=== PATIENT | male | born 1985 | race Two or more races ===

== ENCOUNTER 2019-10-16 04:12 | Emergency (ER) | payer SELFPAY ==
[~2019-10-16] VITALS: Ht 180.3 cm; Wt 127.0 kg
[2019-10-16] MEDS ORDERED: IV NORMAL SALINE 1000ML BAG 1,000 ML IV ONE (05:00)
[2019-10-16] MEDS ORDERED: KETOROLAC 30 MG/ML VIAL. IVP ONE (05:00)
[2019-10-16 05:12] LABS: BASO # 0.1 x10^3/uL (0.0-0.2); BASO % 0 % (0-3); EOS # 0.1 x10^3/uL (0.0-0.7); EOS % 0 % (0-3); LYMPH # 1.2 x10^3/uL (1.0-4.8); LYMPH % 8 % (24-48); MEAN CORPUSCULAR HEMOGLOBIN 30 pg (25-35); MEAN CORPUSCULAR HGB CONC 35 g/dL (31-37); MEAN CORPUSCULAR VOLUME 86 fL (79-100); MONO % 6 % (0-9); NEUT # 13.2 x10^3/uL (1.8-7.7); NEUT % 85 % (31-73); PLATELET COUNT 170 x10^3/uL (140-400); RED CELL DISTRIBUTION WIDTH 13.4 % (11.5-14.5); WHITE BLOOD COUNT 15.5 x10^3/uL (4.0-11.0)
[2019-10-16 05:23] LABS: CALCIUM 8.6 mg/dL (8.5-10.1); POTASSIUM 3.9 mmol/L (3.5-5.1)
[2019-10-16 05:33] LABS: ALBUMIN 4.1 g/dL (3.4-5.0); TOTAL BILIRUBIN 0.5 mg/dL (0.2-1.0); TOTAL PROTEIN 8.1 g/dL (6.4-8.2)
--- NOTE | 2019-10-16 05:37 | PHYS DOC ---
Past Medical History Past Medical History: Migraines, Other Additional Past Medical Histor: KIDNEY STONES Past Surgical History: No Surgical History Smoking Status: Former Smoker Alcohol Use: None General Adult EDM: Chief Complaint: FLANK PAIN HPI: HPI: Patient is a 34 year old male who presents to the ED with a chief complaint of bilateral flank pain greater on the left than the right. Patient does state that he has a history of kidney stones. Patient also states that he has increased urinary frequency and dysuria. Patient also states that his urine was cloudy today. Patient also states that he was out on the [place] today with his children and he was playing with them and he may have injured his back. He is not sure whether this is a kidney stone or a back injury. Review of Systems: Review of Systems: Constitutional: Denies fever or chills. [] Eyes: Denies change in visual acuity. [] HENT: Denies nasal congestion or sore throat. [] Respiratory: Denies cough or shortness of breath. [] Cardiovascular: Denies chest pain or edema. [] GI: Complains of bilateral flank pain [] : Complains of dysuria, urinary frequency [] Neurologic: Denies headache, focal weakness or sensory changes. [] Heart Score: Risk Factors: Risk Factors: DM, Current or recent (<one month) smoker, HTN, HLP, family history of CAD, obesity. Risk Scores: Score 0 - 3: 2.5% MACE over next 6 weeks - Discharge Home Score 4 - 6: 20.3% MACE over next 6 weeks - Admit for Clinical Observation Score 7 - 10: 72.7% MACE over next 6 weeks - Early Invasive Strategies Current Medications: Current Medications Medications (Trade) Dose Ordered Sig/Norma Start Time Stop Time Status Last Admin Dose Admin Ketorolac Tromethamine (Toradol 30mg Vial) 30 mg 1X ONCE 10/16/19 05:00 10/16/19 05:01 DC 10/16/19 05:05 30 MG Sodium Chloride 1,000 ml @ 1,000 mls/hr 1X ONCE 10/16/19 05:00 10/16/19 05:59 Allergies: Allergies: Allergies Coded Allergies Type Severity Reaction Last Updated Verified No Known Drug Allergies 10/16/19 No Physical Exam: PE: Constitutional: Well developed, well nourished, no acute distress, non-toxic appearance. [] HENT: Normocephalic, atraumatic Eyes: EOMI Neck: Normal range of motion, Supple Cardiovascular:Heart rate regular rhythm Lungs & Thorax: Bilateral breath sounds clear to auscultation [] Abdomen: Left abdominal tenderness Extremities: Left paralumbar spinal tenderness radiating down the left thigh Neurologic: Alert and oriented X 3 Current Patient Data: Labs: Laboratory Tests Test 10/16/19 04:58 White Blood Count 15.5 x10^3/uL (4.0-11.0) H Red Blood Count 5.00 x10^6/uL (4.30-5.70) Hemoglobin 15.0 g/dL (13.0-17.5) Hematocrit 43.0 % (39.0-53.0) Mean Corpuscular Volume 86 fL (79-100) Mean Corpuscular Hemoglobin 30 pg (25-35) Mean Corpuscular Hemoglobin Concent 35 g/dL (31-37) Red Cell Distribution Width 13.4 % (11.5-14.5) Platelet Count 170 x10^3/uL (140-400) Neutrophils (%) (Auto) 85 % (31-73) H Lymphocytes (%) (Auto) 8 % (24-48) L Monocytes (%) (Auto) 6 % (0-9) Eosinophils (%) (Auto) 0 % (0-3) Basophils (%) (Auto) 0 % (0-3) Neutrophils # (Auto) 13.2 x10^3/uL (1.8-7.7) H Lymphocytes # (Auto) 1.2 x10^3/uL (1.0-4.8) Monocytes # (Auto) 1.0 x10^3/uL (0.0-1.1) Eosinophils # (Auto) 0.1 x10^3/uL (0.0-0.7) Basophils # (Auto) 0.1 x10^3/uL (0.0-0.2) Platelet Estimate Pending Sodium Level 137 mmol/L (136-145) Potassium Level 3.9 mmol/L (3.5-5.1) Chloride Level 100 mmol/L (98-107) Carbon Dioxide Level 26 mmol/L (21-32) Anion Gap 11 (6-14) Blood Urea Nitrogen 14 mg/dL (8-26) Creatinine 1.0 mg/dL (0.7-1.3) Estimated GFR (Cockcroft-Gault) 85.0 BUN/Creatinine Ratio 14 (6-20) Glucose Level 121 mg/dL (70-99) H Calcium Level 8.6 mg/dL (8.5-10.1) Total Bilirubin 0.5 mg/dL (0.2-1.0) Aspartate Amino Transferase (AST) 41 U/L (15-37) H Alanine Aminotransferase (ALT) 95 U/L (16-63) H Alkaline Phosphatase 48 U/L (46-116) Total Protein 8.1 g/dL (6.4-8.2) Albumin 4.1 g/dL (3.4-5.0) Albumin/Globulin Ratio 1.0 (1.0-1.7) Laboratory Tests 10/16/19 04:58 Laboratory Tests 10/16/19 04:58 Vital Signs: Vital Signs Date Time Temp Pulse Resp B/P (MAP) Pulse Ox O2 Delivery O2 Flow Rate FiO2 10/16/19 04:44 99.6 120 18 141/89 (106) 97 Room Air 99.6 EKG: EKG: [] Radiology/Procedures: Radiology/Procedures: [] Impression: CT ABD/PELVIS IMPRESSION: 1. No opaque urinary calculi. No hydronephrosis. 2. Dilatation of the left mid to distal ureter with tapering just before the ureterovesicular junction. Considerations would include a congenital megaureter or vesicoureteral reflux. An underlying neoplasm would be difficult to exclude. CT urogram is recommended for further characterization. 3. Hepatic steatosis. Course & Med Decision Making: Course & Med Decision Making Pertinent Labs and Imaging studies reviewed. (See chart for details) Patient has leukocytosis of 15.5. UA shows that patient has UTI. Patient was given IV Rocephin in the ER. Patient was given pain medication for his low back pain. Patient states that the pain is worse when he moves. I think the etiology is musculoskeletal. He also states that the pain is radiating down his left thigh. Most likely sciatica. I have also ordered Solu-Medrol 125 mg IV and Norflex [address] does show enlarged ureter on the left side. I given the patient a copy of the CT result so that he can follow-up with his PCP. Patient states that he lives in [place] and is driving back from [place] to [place] today. Discussed results and plan of care with patient. Patient is instructed to follow up with PCP in one to 2 days. Appropriate discharge instructions given to patient to return to the ED or to seek immediate medical evaluation. Patient is instructed to return to the ED if symptoms worsen or if any concerns. Dragon Disclaimer: Dragon Disclaimer: This electronic medical record was generated, in whole or in part, using a voice recognition dictation system. Departure Departure Impression: Primary Impression: Low back pain Additional Impressions: Sciatica of left side Muscle strain UTI (urinary tract infection) Disposition: HOME, SELF-CARE Condition: GOOD Referrals: UNKNOWN PCP NAME (PCP) Patient Instructions: Back Pain, Adult, Muscle Strain, Sciatica Additional Instructions: Discussed results and plan of care with patient. Patient is instructed to follow up with PCP in one to 2 days. Appropriate discharge instructions given to patient to return to the ED or to seek immediate medical evaluation. Patient is instructed to return to the ED if symptoms worsen or if any concerns. Scripts Sulfamethoxazole/Trimethoprim (BACTRIM DS TABLET) 1 Each Tablet 1 TAB PO BID for 10 Days, #20 TAB 0 Refills Prov: YON ROBIN DO 10/16/19 Cyclobenzaprine Hcl (CYCLOBENZAPRINE HCL) 10 Mg Tablet 1 TAB PO TID for PAIN, #15 TAB Prov: YON ROBIN DO 10/16/19 Hydrocodone/Apap 5-325 (NORCO 5-325 TABLET) 1 Each Tablet 1 EACH PO PRN Q6HRS PRN for PAIN, #15 as needed for pain Prov: YON ROBIN DO 10/16/19 Justicifation of Admission Dx: Justifications for Admission: Justification of Admission Dx: No YON ROBIN DO Oct 16, 2019 05:37
--- NOTE | 2019-10-16 05:49 | RAD ---
CT ABDOMEN PELVIS WO CONTRAST INDICATION: Reason: FLANK PAIN / Spl. Instructions: / History: EXAM: Noncontrast CT of the abdomen and pelvis. Coronal and sagittal reformatted images were performed. PQRS compliance statement: One or more of the following individualized dose reduction techniques were utilized for this examination: 1. Automated exposure control 2. Adjustment of the mA and/or kV according to patient size 3. Use of iterative reconstruction technique COMPARISON: None FINDINGS: No free air, free fluid, or fluid collection. Lower chest: The visualized lower lungs are aerated. No pleural or pericardial effusion. ABDOMEN: Liver: Hepatic steatosis. Gallbladder and biliary: Normal gallbladder without radiopaque stone. Normal caliber bile ducts. Spleen: Normal spleen. Pancreas: The noncontrast pancreas is homogeneous in attenuation without peripancreatic inflammatory changes. Adrenal glands: Normal adrenal glands. Kidneys and ureters: No opaque urinary calculi. Dilatation of the left mid to distal ureter with tapering just before the ureterovesicular junction. GI tract: The stomach is decompressed and poorly evaluated. Normal caliber small bowel and colon. Normal appendix. Vascular structures: Normal caliber abdominal aorta. Lymph nodes: No lymphadenopathy in the abdomen or pelvis. PELVIS: Genitourinary system: Normal bladder. SKELETAL STRUCTURES AND SOFT TISSUES: No fracture or destructive lesion in the visualized skeleton. IMPRESSION: 1. No opaque urinary calculi. No hydronephrosis. 2. Dilatation of the left mid to distal ureter with tapering just before the ureterovesicular junction. Considerations would include a congenital megaureter or vesicoureteral reflux. An underlying neoplasm would be difficult to exclude. CT urogram is recommended for further characterization. 3. Hepatic steatosis. Electronically signed by: Tesfaye Michael MD (10/16/2019 5:47 AM) [facility]
[2019-10-16 06:01] LABS: BILIRUBIN,URINE NEGATIVE (NEG); CLARITY,URINE CLEAR; COLOR,URINE YELLOW; NITRITE,URINE NEGATIVE (NEG); PH,URINE 7.5 (<5.0-8.0); PROTEIN,URINE NEGATIVE (NEG-TRACE); UROBILINOGEN,URINE 0.2 mg/dL (0.2 mg/dL)
[2019-10-16 06:12] LABS: BACTERIA,URINE FEW /HPF (0-FEW); RBC,URINE 0 /HPF (0-2); SQUAMOUS EPITHELIAL CELL,UR FEW /LPF
[2019-10-16] MEDS ORDERED: CYCL10TA2 PO (06:12)
[2019-10-16] MEDS ORDERED: HYDR-3164 PO (06:12)
[2019-10-16] MEDS ORDERED: SULF1TAB24 PO (06:16)
[2019-10-16] MEDS ORDERED: ORPHENADRINE CITRATE 60 MG/2 ML VIAL. IM ONE (06:30)
[2019-10-16] MEDS ORDERED: methylPREDNISolone SOD SUCC PF 125 MG/2 ML VIAL. IV ONE (06:30)
[2019-10-16] MEDS ORDERED: cefTRIAXone IV Push 1 GM VIAL. IVP ONE (06:30)
[2019-10-16 06:32] LABS: % BANDS 3 % (0-9); % LYMPHS 9 % (24-48); % MONOS 3 % (0-10); % SEGS 85 % (35-66)
[2019-10-16 06:33] LABS: PLT ESTIMATE ADEQUATE (ADEQUATE)
[2019-10-16 06:50] VITALS: BP 153/83
== END 2019-10-16 06:55 | disposition home or self-care (01) ==
LOC: ER 04:12
DX: S39.012A Strain of muscle, fascia and tendon of lower back, initial encounter (principal); N39.0 Urinary tract infection, site not specified; M54.42 Lumbago with sciatica, left side; G43.909 Migraine, unspecified, not intractable, without status migrainosus; Z87.442 Personal history of urinary calculi; Z87.891 Personal history of nicotine dependence; X58.XXXA Exposure to other specified factors, initial encounter; Y93.89 Activity, other specified; Y92.89 Other specified places as the place of occurrence of the external cause; Y99.8 Other external cause status
CPT/HCPCS: 36415; 74176; 80053; 81001; 85007; 85025; 87086; 96372; 96374; 96375; 99284; J0696; J1885; J2360; J2930; J7030

== ENCOUNTER 2019-10-18 22:37 | Emergency (ER) | payer SELFPAY ==
[~2019-10-18] VITALS: Ht 180.3 cm; Wt 130.0 kg
[~2019-10-18 22:37] MED LIST: CYCL10TA2 PO; HYDR-3164 PO; SULF1TAB24 PO
--- NOTE | 2019-10-18 23:34 | PHYS DOC ---
Past Medical History Past Medical History: Migraines, Other Additional Past Medical Histor: KIDNEY STONES Past Surgical History: No Surgical History Smoking Status: Former Smoker Alcohol Use: None General Adult EDM: Chief Complaint: Neck Pain HPI: HPI: Patient is a 34 year old male presents with the chief complaint of right sided headache and neck pain. Patient states sudden onset of pain on wednesday while lifting child. States pain left neck and lower back onset at same time. He states he was evaluated here on Wednesday-- placed on norco, tmp-smx, flexeril. Patient states norco and flexeril help with pain but pain still continues. Patient is described as intense. No focal neurological abnormalities. Review of Systems: Review of Systems: Constitutional: Denies fever or chills. [] Eyes: Denies change in visual acuity. [] HENT: Denies nasal congestion or sore throat. [] Respiratory: Denies cough or shortness of breath. [] Cardiovascular: Denies chest pain or edema. [] GI: Denies abdominal pain, nausea, vomiting, bloody stools or diarrhea. [] : Denies dysuria. [] Musculoskeletal: Denies back pain or joint pain. [] Integument: Denies rash. [] Neurologic: Denies headache, focal weakness or sensory changes. [] Endocrine: Denies polyuria or polydipsia. [] Lymphatic: Denies swollen glands. [] Psychiatric: Denies depression or anxiety. [] Heart Score: Risk Factors: Risk Factors: DM, Current or recent (<one month) smoker, HTN, HLP, family history of CAD, obesity. Risk Scores: Score 0 - 3: 2.5% MACE over next 6 weeks - Discharge Home Score 4 - 6: 20.3% MACE over next 6 weeks - Admit for Clinical Observation Score 7 - 10: 72.7% MACE over next 6 weeks - Early Invasive Strategies Allergies: Allergies: Allergies Coded Allergies Type Severity Reaction Last Updated Verified No Known Drug Allergies 10/16/19 No Physical Exam: PE: Constitutional: Well developed, well nourished, no acute distress, non-toxic appearance. [] HENT: Normocephalic, atraumatic, bilateral external ears normal, oropharynx moist, no oral exudates, nose normal. [] Eyes: PERRLA, EOMI, conjunctiva normal, no discharge. [] Neck: Normal range of motion, no tenderness, supple, no stridor. [] Cardiovascular:Heart rate regular rhythm, no murmur [] Lungs & Thorax: Bilateral breath sounds clear to auscultation [] Abdomen: Bowel sounds normal, soft, no tenderness, no masses, no pulsatile masses. [] Skin: Warm, dry, no erythema, no rash. [] Back: No tenderness, no CVA tenderness. [] Extremities: No tenderness, no cyanosis, no clubbing, ROM intact, no edema. [] Neurologic: Alert and oriented X 3, normal motor function, normal sensory function, no focal deficits noted. [] Psychologic: Affect normal, judgement normal, mood normal. [] EKG: EKG: [] Radiology/Procedures: Radiology/Procedures: [] Impression: Comparison: None. Technique: 5 mm axial tomographic images were obtained of the head without contrast. These were viewed on brain and bone windows. One or more of the following dose reduction techniques were utilized: Automated exposure control (AEC), Adjustment of mA and/or kV according to patient size, Use of iterative reconstruction technique such as ASiR, CT scan done according to ALARA and image gently/image wisely Findings: The brain parenchyma is normal in attenuation. No intra- or extra-axial mass or fluid collection. No acute hemorrhage. The ventricles are normal in size, shape, and morphology. The mark-white matter junction is normal. The subarachnoid cisterns are patent. The visualized paranasal sinuses are normal. The visualized portions of the orbits and globes are normal. The mastoid air cells are clear. The cell room operator topogram shows no lytic lesion or fracture. Impression: No acute intracranial process. Course & Med Decision Making: Course & Med Decision Making Pertinent Labs and Imaging studies reviewed. (See chart for details) [] Patient was evaluated for chief complaint. Work-up consisted of CT imaging. CT head negative for acute abnormalities. Nursing informed me patient was also febrile. Patient was treated with Tylenol. Patient reevaluated states he also has a cough with no sputum production x1 day. Patient had a chest x-ray with negative for acute abnormalities. Patient's blood pressure noted to be severely elevated greater than 200 sys tolic. Patient is on lisinopril 10 mg and states he has not taken this evening. Patient was treated with lisinopril 10 mg p.o. as well as labetalol 20 mg IV push. Patient's blood pressure improved to the 150 systolic. Despite treatment with morphine. Patient states headache still continued. At this time I discussed lumbar puncture with the patient. Patient underwent a lumbar puncture and CSF was obtained and collected. CSF fluids virtually unremarkable. Patient did have 1 WBC very mildly elevated CSF glucose and CSF protein. Patient's fevers symptoms all improved. Patient will be discharged home. Patient advised to continue taking previously prescribed Bactrim for urinary tract infection. Patient advised to take Tylenol Motrin as needed for pain. Patient also advised to continue previously prescribed Craig as needed. Patient's muscle relaxer will be changed to Valium. Dragon Disclaimer: [employer] Disclaimer: This electronic medical record was generated, in whole or in part, using a voice recognition dictation system. Departure Departure Impression: Primary Impression: Headache Additional Impressions: Neck pain Cervical strain Fever Disposition: HOME, SELF-CARE Condition: STABLE Referrals: UNKNOWN PCP NAME (PCP) Patient Instructions: Cervical Strain and Sprain with [facility], Headache, FAQs Scripts Diazepam (VALIUM) 10 Mg Tablet 10 MG PO TID for 7 Days, #14 TAB Prov: SERAFIN CARDENAS I DO 10/19/19 Justicifation of Admission Dx: Justifications for Admission: Justification of Admission Dx: No SERAFIN CARDENAS I DO Oct 18, 2019 23:34
[2019-10-18] MEDS ORDERED: ACETAMINOPHEN 325 MG TABLET. PO ONE (23:45)
--- NOTE | 2019-10-18 23:50 | RAD ---
CT HEAD WO CONTRAST Date: 10/18/2019 11:36 PM Clinical Indication: Reason: headache / Spl. Instructions: / History: Comparison: None. Technique: 5 mm axial tomographic images were obtained of the head without contrast. These were viewed on brain and bone windows. One or more of the following dose reduction techniques were utilized: Automated exposure control (AEC), Adjustment of mA and/or kV according to patient size, Use of iterative reconstruction technique such as ASiR, CT scan done according to ALARA and image gently/image wisely Findings: The brain parenchyma is normal in attenuation. No intra- or extra-axial mass or fluid collection. No acute hemorrhage. The ventricles are normal in size, shape, and morphology. The mark-white matter junction is normal. The subarachnoid cisterns are patent. The visualized paranasal sinuses are normal. The visualized portions of the orbits and globes are normal. The mastoid air cells are clear. The administrative project coordinator topogram shows no lytic lesion or fracture. Impression: No acute intracranial process. Electronically signed by: Tesfaye Michael MD (10/18/2019 11:47 PM) [facility]
[2019-10-19] MEDS ORDERED: LISINOPRIL 10 MG TABLET PO ONE
[2019-10-19] MEDS ORDERED: LABETALOL 20 MG/4 ML DISP.SYRIN. IVP ONE (00:30)
[2019-10-19 00:53] LABS: CALCIUM 8.5 mg/dL (8.5-10.1); POTASSIUM 3.8 mmol/L (3.5-5.1)
[2019-10-19 00:54] LABS: BASO % 0 % (0-3); EOS % 0 % (0-3); HEMOGLOBIN 15.2 g/dL (13.0-17.5); LYMPH # 0.8 x10^3/uL (1.0-4.8); LYMPH % 13 % (24-48); MEAN CORPUSCULAR HEMOGLOBIN 30 pg (25-35); MEAN CORPUSCULAR HGB CONC 35 g/dL (31-37); MEAN CORPUSCULAR VOLUME 86 fL (79-100); MONO # 0.8 x10^3/uL (0.0-1.1); MONO % 12 % (0-9); NEUT # 4.9 x10^3/uL (1.8-7.7); NEUT % 75 % (31-73); PLATELET COUNT 146 x10^3/uL (140-400); RED BLOOD COUNT 5.04 x10^6/uL (4.30-5.70); RED CELL DISTRIBUTION WIDTH 13.2 % (11.5-14.5); WHITE BLOOD COUNT 6.6 x10^3/uL (4.0-11.0)
[2019-10-19 00:59] LABS: ALBUMIN 3.9 g/dL (3.4-5.0); ALBUMIN/GLOBULIN RATIO 0.9 (1.0-1.7); TOTAL BILIRUBIN 0.5 mg/dL (0.2-1.0); TOTAL PROTEIN 8.4 g/dL (6.4-8.2)
[2019-10-19] MEDS ORDERED: MORPHINE SULFATE 4 MG/ML VIAL. IV ONE (01:30)
[2019-10-19] MEDS ORDERED: LIDOCAINE 1% PF 2 ML VIAL. INJ ONE (02:15)
--- NOTE | 2019-10-19 02:47 | RAD ---
CHEST AP ONLY INDICATION: Reason: fever cough / Spl. Instructions: / History: . COMPARISON STUDY: None. FINDINGS: Lungs: Low lung volume. No pulmonary mass or consolidation. The tracheobronchial tree and hilar structures are normal. Pleura: No pleural effusion or pneumothorax. Heart and Mediastinum: The cardiomediastinal silhouette is normal. The great vessels of the thorax are normal. Bones and Soft Tissues: The bones and soft tissues are within normal limits. IMPRESSION: Low lung volume. No consolidation. Electronically signed by: Tesfaye Michael MD (10/19/2019 2:44 AM) [facility]
[2019-10-19 02:56] LABS: CSF PROTEIN 45.9 mg/dL (15.0-45.0)
[2019-10-19 02:58] LABS: CSF CLARITY CLEAR; CSF COLOR COLORLESS; CSF RBC COUNT 2 /cmm (Not Established); CSF WBC COUNT 1 /cmm (Not Established)
[2019-10-19] MEDS ORDERED: VALIUM10 MG PO (03:40)
[2019-10-19] MEDS ORDERED: KETOROLAC 30 MG/ML VIAL. IVP ONE (04:00)
[2019-10-19 04:24] VITALS: BP 150/83
== END 2019-10-19 04:27 | disposition home or self-care (01) ==
LOC: ER 22:37
DX: S16.1XXA Strain of muscle, fascia and tendon at neck level, initial encounter (principal); R50.9 Fever, unspecified; G43.909 Migraine, unspecified, not intractable, without status migrainosus; Z87.442 Personal history of urinary calculi; Z87.891 Personal history of nicotine dependence; X50.0XXA Overexertion from strenuous movement or load, initial encounter; Y93.89 Activity, other specified; Y92.89 Other specified places as the place of occurrence of the external cause; Y99.8 Other external cause status
CPT/HCPCS: 36415; 70450; 71045; 80053; 82945; 84157; 85025; 87529; 87899; 89051; 96372; 96374; 96375; 99285; J1885; J2270; J3490